=== PATIENT | female | born 1960 | race Caucasian/White ===

== ENCOUNTER 2016-07-25 18:07 | Emergency (ER) | payer OTHER ==
[2016-07-25] MEDS: DIAZEPAM 5 MG TAB PO ONE (18:24)
[2016-07-25] MEDS ORDERED: HALOPERIDOL LACTATE 5 MG/ML SOL IM ONE (18:24)
[2016-07-25] MEDS ORDERED: SODIUM CHLORIDE 0.9% 1000 ML SOL IV SCH (18:30)
[2016-07-25 18:32] LABS: BASOPHILS % (AUTO) 1 % (0-3); EOSINOPHILS % (AUTO) 0 % (0-9); HEMATOCRIT 41 % (35-47); MEAN CORPUSCULAR HGB CONC 34.5 gm/dl (32.0-36.0); MEAN CORPUSCULAR VOLUME 88 fL (81-99); NEUTROPHILS % (AUTO) 65.6 % (37-80)
[2016-07-25] MEDS ORDERED: THIAMINE 100 MG/ML 100 MG/ML SOL IV ONE (18:36)
[2016-07-25] MEDS ORDERED: HALOPERIDOL LACTATE 5 MG/ML SOL ONE (18:38)
[2016-07-25] MEDS ORDERED: DIAZEPAM 5 MG TAB ONE ×2 (18:41→18:49)
[2016-07-25] MEDS ORDERED: DEXTROSE/SALINE 0.9% 1,000 ML IV SCH (18:45)
[2016-07-25] MEDS ORDERED: THIAMINE 100 MG/ML 100 MG/ML SOL ONE (18:47)
[2016-07-25 18:56] LABS: ALBUMIN 3.7 gm/dl (3.4-5.0); ALT 160 IU/L (14-63); CALCIUM 8.1 mg/dl (8.5-10.1); GLOM FILT RATE 80 mL/min (>60); POTASSIUM 3.6 mMol/L (3.5-5.1); SALICYLATE < 2.8 mg/dl (2.8-30.0); SODIUM 143 mMol/L (136-145); THYROID STIMULATING HORMONE 0.776 uIU/ml (0.358-3.740)
[2016-07-25 19:31] LABS: APPEARANCE,URINE Slightly Cloudy; BILIRUBIN,URINE NEGATIVE (NEGATIVE); COLOR,URINE Light yellow; GLUCOSE, URINE (UA) NEGATIVE (NEGATIVE); KETONES,URINE 2+ (NEGATIVE); LEUKOCYTE ESTERASE ,URINE NEGATIVE (NEGATIVE); NITRATE,URINE NEGATIVE (NEGATIVE); OCCULT BLOOD,URINE TRACE LYSED (NEG-TRACE); PH,URINE 5.5; UROBILINOGEN,URINE 0.2 (0.2-1.0 EU)
[2016-07-25 19:44] LABS: AMPHETAMINES NEGATIVE (NEGATIVE); METHADONE NEGATIVE (NEGATIVE); OPIATES(OP13) NEGATIVE (NEGATIVE); OXYCODONE(OXY) NEGATIVE (NEGATIVE); PROPOXYPHENE(PPX) NEGATIVE (NEGATIVE); RBC,URINE NEGATIVE (0-3AV/HPF); TRICYCLIC ANTIDEPRESSANTS NEGATIVE (NEGATIVE); WBC,URINE 0-3 (0-5AV/HPF)
[2016-07-25 22:03] VITALS: BP 160/88; PULSE 95; RESP 22; TEMP 97.9; O2SAT 98
== END 2016-07-25 21:52 | disposition short-term general hospital (02) | DRG 897 ==
LOC: ED 18:07
DX: F10.129 Alcohol abuse with intoxication, unspecified (principal); Y90.8 Blood alcohol level of 240 mg/100 ml or more
CPT/HCPCS: 36415; 80053; 80305; 80307; 81001; 82150; 84443; 85025; 96365; 96372; 96374; 99284; J1630

== ENCOUNTER 2017-02-07 13:43 | Outpatient (CLI) | payer OTHER ==
[2016-07-25 22:03] VITALS: O2SAT 98
== END 2017-02-07 13:44 | disposition home or self-care (01) ==
LOC: CONVCARE 13:43
PROVIDERS: ATTEND Orthopaedic Surgery
DX: M17.11 Unilateral primary osteoarthritis, right knee (principal); Z96.652 Presence of left artificial knee joint
CPT/HCPCS: 73562

== ENCOUNTER 2017-03-08 08:06 | Day surgery (SDC) | payer OTHER ==
[~2017-03-08 08:06] MED LIST: LIDOCAINE HCL 1% MPF SOL ONE; PROPOFOL 500 MG/50 ML EMU IV ONE
[2017-03-08 10:08] VITALS: TEMP 96.1
[2017-03-08 10:15] VITALS: BP 115/74; PULSE 71; RESP 20; O2SAT 94
== END 2017-03-08 10:31 | disposition home or self-care (01) ==
LOC: SURG 08:06
PROVIDERS: ATTEND Internal Medicine Gastroenterology
DX: R10.30 Lower abdominal pain, unspecified (principal); K52.9 Noninfective gastroenteritis and colitis, unspecified; Z86.010 Personal history of colon polyps; Z90.49 Acquired absence of other specified parts of digestive tract; K57.30 Diverticulosis of large intestine without perforation or abscess without bleeding; Z98.0 Intestinal bypass and anastomosis status; K64.8 Other hemorrhoids; D12.2 Benign neoplasm of ascending colon; D12.5 Benign neoplasm of sigmoid colon; D12.3 Benign neoplasm of transverse colon
CPT/HCPCS: 45380; J2001; J2704

== ENCOUNTER 2017-04-04 12:43 | Outpatient (CLI) | payer OTHER ==
[2017-03-08 10:15] VITALS: O2SAT 94
== END 2017-04-04 12:44 | disposition home or self-care (01) ==
LOC: CONVCARE 12:43
PROVIDERS: ATTEND Orthopaedic Surgery
DX: M75.41 Impingement syndrome of right shoulder (principal)
CPT/HCPCS: 73030

== ENCOUNTER 2017-07-05 08:01 | Day surgery (SDC) | payer OTHER ==
[2017-07-05 10:02] VITALS: TEMP 97.9
[2017-07-05 10:25] VITALS: RESP 20
[2017-07-05 10:34] VITALS: BP 126/81; PULSE 70; O2SAT 94
== END 2017-07-05 10:45 | disposition home or self-care (01) ==
LOC: SURG 08:01
PROVIDERS: ATTEND Internal Medicine Gastroenterology
DX: R10.10 Upper abdominal pain, unspecified (principal); R13.10 Dysphagia, unspecified; R19.7 Diarrhea, unspecified; K22.2 Esophageal obstruction; K44.9 Diaphragmatic hernia without obstruction or gangrene; K57.10 Diverticulosis of small intestine without perforation or abscess without bleeding; K21.0 Gastro-esophageal reflux disease with esophagitis
CPT/HCPCS: J2001; J2704

== ENCOUNTER 2017-10-16 12:12 | Emergency (ER) | payer OTHER ==
[2017-10-16 12:22] VITALS: RESP 20; TEMP 97.1
[2017-10-16] MEDS ORDERED: KETOROLAC TROMETHAMINE 30 MG/ML SOL IV ONE (12:32)
[2017-10-16] MEDS ORDERED: KETOROLAC TROMETHAMINE 30 MG/ML SOL ONE (12:39)
[2017-10-16 12:40] LABS: BASOPHILS % (AUTO) 1 % (0-3); EOSINOPHILS % (AUTO) 2 % (0-9); HEMATOCRIT 41 % (35-47); HEMOGLOBIN 14.3 gm/dl (12.0-15.5); LYMPHOCYTES % (AUTO) 25.5 % (10-50); MEAN CORPUSCULAR HEMOGLOBIN 29.1 pg (27.0-32.0); MEAN CORPUSCULAR HGB CONC 35.1 gm/dl (32.0-36.0); MEAN CORPUSCULAR VOLUME 83 fL (81-99); MONOCYTES % (AUTO) 4.2 % (0-12); NEUTROPHILS % (AUTO) 67.7 % (37-80)
[2017-10-16] MEDS ORDERED: SODIUM CHLORIDE 0.9% 1000 ML SOL IV SCH (12:45)
[2017-10-16 13:04] LABS: ALBUMIN 3.6 gm/dl (3.4-5.0); BILIRUBIN,TOTAL 0.2 mg/dl (0.2-1.0); CALCIUM 9.1 mg/dl (8.5-10.1); CARBON DIOXIDE 23.2 mEq/L (21-32); CREATININE 0.79 mg/dl (0.60-1.00); POTASSIUM 3.8 mMol/L (3.5-5.1); TOTAL PROTEIN 7.1 gm/dl (6.4-8.2)
[2017-10-16 14:01] LABS: APPEARANCE,URINE Clear; BILIRUBIN,URINE NEGATIVE (NEGATIVE); COLOR,URINE Yellow; GLUCOSE, URINE (UA) NEGATIVE (NEGATIVE); KETONES,URINE NEGATIVE (NEGATIVE); LEUKOCYTE ESTERASE ,URINE NEGATIVE (NEGATIVE); NITRATE,URINE NEGATIVE (NEGATIVE); OCCULT BLOOD,URINE NEGATIVE (NEG-TRACE); PH,URINE 5.5; UROBILINOGEN,URINE 0.2 (0.2-1.0 EU)
[2017-10-16 14:13] LABS: BACTERIA RARE (< 1+); CRYSTALS NEGATIVE (0-3 AVE/HPF); EPITHELIAL CELLS NEGATIVE (SQUAMOUS); RBC,URINE NEGATIVE (0-3AV/HPF); WBC,URINE NEGATIVE (0-5AV/HPF)
[2017-10-16 14:24] VITALS: BP 132/77; PULSE 63; O2SAT 98
== END 2017-10-16 14:40 | disposition home or self-care (01) ==
LOC: ED 12:12
DX: K52.9 Noninfective gastroenteritis and colitis, unspecified (principal); I10 Essential (primary) hypertension
CPT/HCPCS: 74177; 80053; 81001; 82150; 85025; 99284; J1885; Q9967

== ENCOUNTER 2018-03-27 10:48 | Outpatient (CLI) | payer OTHER ==
[2017-10-16 14:24] VITALS: O2SAT 98
== END 2018-03-27 10:49 | disposition home or self-care (01) ==
LOC: CONVCARE 10:48
PROVIDERS: ATTEND Orthopaedic Surgery
DX: Z98.890 Other specified postprocedural states (principal)
CPT/HCPCS: 73560